=== PATIENT | male | born 1980 | race Caucasian/White ===

== ENCOUNTER 2019-08-01 03:07 | Emergency (ER) | payer OTHER ==
[~2019-08-01] VITALS: Ht 170.2 cm; Wt 77.1 kg
--- NOTE | 2019-08-01 03:52 | NUR ---
PT AAOX4. BIBSELF C/O ETOH. PT AMBULATORY WITH STEADY GAIT, NO NEURO DEFICIT, VSS. DENIES PAIN. WILL CONTINUE TO MONITOR.
--- NOTE | 2019-08-01 06:04 | NUR ---
Patient discharged to home in stable condition. Written and verbal after care instructions given. Patient verbalizes understanding of instruction. Pt signed homeless discharge. Ambulated with stedy gait. VSS.
[2019-08-01 06:05] VITALS: BP 118/72
== END 2019-08-01 06:05 | disposition home or self-care (01) ==
LOC: ER 03:09
DX: F10.129 Alcohol abuse with intoxication, unspecified (principal); Y90.9 Presence of alcohol in blood, level not specified